=== PATIENT | female | born 1995 | race Two or more races ===

== ENCOUNTER → 2017-01-20 | Outpatient (REF) | payer OTHER ==
[2017-01-20 12:57] LABS: ALBUMIN 3.6 GM/DL (3.2-5.2); ALBUMIN/GLOBULIN RATIO 0.97 (1.00-1.93); ALKALINE PHOSPHATASE 43 U/L (45-117); ALT/SGPT 18 U/L (12-78); ANION GAP 11 MEQ/L (8-16); AST/SGOT 16 U/L (15-37); BILIRUBIN,TOTAL 0.2 MG/DL (0.2-1.0); BLOOD UREA NITROGEN 10 MG/DL (7-18); CALCIUM LEVEL 9.1 MG/DL (8.5-10.1); CARBON DIOXIDE LEVEL 26 MEQ/L (21-32); CHLORIDE LEVEL 105 MEQ/L (98-107); CHOLESTEROL LEVEL 207 MG/DL (<200); CREATININE FOR GFR 0.68 MG/DL (0.55-1.02); GLOMERULAR FILTRATION RATE > 60.0 (>60); GLUCOSE, FASTING 78 MG/DL (70-105); POTASSIUM SERUM 4.5 MEQ/L (3.5-5.1); SODIUM LEVEL 142 MEQ/L (136-145); TOTAL PROTEIN 7.3 GM/DL (6.4-8.2); TRIGLYCERIDES LEVEL 277 MG/DL (<150)
== END ==
LOC: M SFHCPLAZ 10:06
PROVIDERS: ATTEND Family Medicine
DX: E66.3 Overweight (principal)

== ENCOUNTER → 2020-03-14 | Outpatient (CLI) | payer BC ==
[2020-03-14 16:18] LABS: C REACTIVE PROTEIN QUANTITATIV 0.34 MG/DL (0.00-0.30); RHEUMATOID FACTOR QUANT < 10.0 IU/ML (<15.0)
[2020-03-17 00:06] LABS: ANTINUCLEAR ANTIBODIES DIRECT Negative (Negative); Lyme Disease IgG/IgM Antibodie <0.91 ISR (0.00-0.90); Lyme Disease IgM Ab Quantitati <0.80 index (0.00-0.79)
== END ==
LOC: M LAB 15:32
PROVIDERS: ATTEND Orthopaedic Surgery
DX: M25.561 Pain in right knee (principal)

== ENCOUNTER → 2021-01-02 | Outpatient (REF) | payer OTHER ==
[2021-01-02 13:31] LABS: HEMOGLOBIN 13.9 g/dl (12.0-15.5); MEAN CORPUSCULAR HEMOGLOBIN 28.4 pg (27.0-33.0); MEAN CORPUSCULAR HGB CONC 32.3 g/dl (32.0-36.5); MEAN CORPUSCULAR VOLUME 87.9 fl (80.0-96.0); PLATELET COUNT, AUTOMATED 314 10^3/uL (150-450); RED BLOOD COUNT 4.89 10^6/uL (4.00-5.40); WHITE BLOOD COUNT 11.2 10^3/uL (4.0-10.0)
[2021-01-02 13:58] LABS: ALT/SGPT 47 U/L (12-78); BILIRUBIN,TOTAL 0.2 MG/DL (0.2-1.0); BLOOD UREA NITROGEN 12 MG/DL (7-18); CALCIUM LEVEL 9.7 MG/DL (8.5-10.1); CARBON DIOXIDE LEVEL 28 MEQ/L (21-32); CHLORIDE LEVEL 107 MEQ/L (98-107); CREATININE FOR GFR 0.58 MG/DL (0.55-1.30); GLOMERULAR FILTRATION RATE > 60.0 (>60); GLUCOSE, FASTING 89 MG/DL (70-100); POTASSIUM SERUM 4.4 MEQ/L (3.5-5.1); SODIUM LEVEL 139 MEQ/L (136-145); TOTAL PROTEIN 7.2 GM/DL (6.4-8.2)
== END ==
LOC: M SFHCPLAZ 10:00
PROVIDERS: ATTEND Nurse Practitioner Adult Health
DX: Z00.00 Encounter for general adult medical examination without abnormal findings (principal); Z13.29 Encounter for screening for other suspected endocrine disorder

== ENCOUNTER → 2021-01-23 | Outpatient (CLI) | payer OTHER ==
--- NOTE | 2021-01-24 06:03 | REP ---
INDICATION: SWELLING OF RT ANTERIOR CERVICAL NODE COMPARISON: None. TECHNIQUE: Garber scale and color evaluation of the thyroid gland using the linear high frequency transducer. FINDINGS: The thyroid gland is normal in contour, shape, size, and echogenicity. No nodule/mass or cystic abnormalities are appreciated. Right thyroid lobe measures 3.8 x 1.5 x 1.4 cm. Isthmus measures 2.0 mm in width. Left thyroid lobe measures 3.7 x 1.5 x 1.4 cm. Palpable mass corresponds to 12 x 5 x 8 mm normal appearing lymph node. IMPRESSION: Normal thyroid ultrasound. Palpable mass corresponds to normal appearing lymph node <Electronically signed by Fredi Lynn > 01/24/21 0559
== END ==
LOC: M RAD 15:39
PROVIDERS: ATTEND Nurse Practitioner Adult Health
DX: R59.9 Enlarged lymph nodes, unspecified (principal)

== ENCOUNTER 2021-10-25 11:58 | Inpatient (IN) | payer OTHER ==
[~2021-10-25] VITALS: Ht 172.7 cm; Wt 99.5 kg
[2021-10-25] MEDS ORDERED: TRI-TAB16 PO (12:07)
[2021-10-25] MEDS ORDERED: PHEN-815 PO (12:07)
[2021-10-25] MEDS ORDERED: dexameTHASONE 4 MG/ML 1ML VIAL (J1100 PER 1MG) IV ONE (13:00)
[2021-10-25] MEDS ORDERED: ACETAMINOPHEN TAB 650MG DOSE (2X325MG) PO PRN ×2 (13:00→15:25)
[2021-10-25] MEDS: ALBUTEROL 90 MCG/ACT 8GM HFA INHALER INH SCH ×5 (13:13→20:34)
[2021-10-25 13:25] LABS: HEMATOCRIT 43.7 % (36.0-47.0); HEMOGLOBIN 14.6 g/dl (12.0-15.5); MEAN CORPUSCULAR HEMOGLOBIN 27.7 pg (27.0-33.0); MEAN CORPUSCULAR HGB CONC 33.4 g/dl (32.0-36.5); MEAN CORPUSCULAR VOLUME 82.9 fl (80.0-96.0); PLATELET COUNT, AUTOMATED 259 10^3/uL (150-450); RED BLOOD COUNT 5.27 10^6/uL (4.00-5.40); WHITE BLOOD COUNT 5.3 10^3/uL (4.0-10.0)
[2021-10-25 13:36] LABS: INR 1.03; PROTHROMBIN TIME 13.9 SECONDS (12.7-14.5)
[2021-10-25 13:37] LABS: PARTIAL THROMBOPLASTIN TIME 33.8 SECONDS (25.9-37.0)
[2021-10-25 13:39] LABS: D-DIMER QUANT 979.39 ng/ml (<500)
[2021-10-25 13:45] LABS: BLOOD UREA NITROGEN 11 MG/DL (7-18); CALCIUM LEVEL 8.3 MG/DL (8.5-10.1); CARBON DIOXIDE LEVEL 23 MEQ/L (21-32); CHLORIDE LEVEL 102 MEQ/L (98-107); CREATININE FOR GFR 0.75 MG/DL (0.55-1.30); GLOMERULAR FILTRATION RATE > 60.0 (>60); GLUCOSE, FASTING 120 MG/DL (70-100); POTASSIUM SERUM 3.7 MEQ/L (3.5-5.1); SODIUM LEVEL 137 MEQ/L (136-145)
[2021-10-25 13:51] LABS: ALBUMIN 3.1 GM/DL (3.2-5.2); BILIRUBIN,DIRECT 0.1 MG/DL (0.0-0.2); BILIRUBIN,TOTAL 0.3 MG/DL (0.2-1.0); C REACTIVE PROTEIN QUANTITATIV 9.78 MG/DL (0.00-0.30); TOTAL PROTEIN 8.3 GM/DL (6.4-8.2)
[2021-10-25 13:55] LABS: HCG, SERUM QUALITATIVE NEGATIVE (NEGATIVE)
--- NOTE | 2021-10-25 14:35 | REP ---
INDICATION: covid/SOB COMPARISON: None. TECHNIQUE: Portable AP view of the chest FINDINGS: Diffuse bilateral opacities consistent with COVID-19 pulmonary disease. No effusion. No pneumothorax. Mediastinum and cardiac silhouette are normal. Skeletal structures are intact. IMPRESSION: Significant diffuse bilateral opacities consistent with COVID-19 pulmonary disease. <Electronically signed by Fredi Lynn > 10/25/21 0214
[2021-10-25] MEDS ORDERED: HOME MED LIST COMPLETE! XX SCH (16:15)
[2021-10-25 17:20] VITALS: BP 130/78
[2021-10-25] MEDS ORDERED: BENZONATATE 100MG CAPSULE PO PRN (17:45)
[2021-10-25] MEDS ORDERED: ONDANSETRON 4MG/2ML VIAL IV PRN (17:45)
--- NOTE | 2021-10-25 17:45 | HPEPDOC ---
General Date of Admission Oct 25, 2021 at 15:12 Date of Service: Oct 25, 2021 Chief Complaint The patient is a 26-year-old female admitted with a reason for visit of Cold/Flu Symptoms +. Source: Patient History of Present Illness 26-year-old female with obesity has been unwell for the past 8 days with fever, chills, malaise, cough, muscle aches headache, sore throat loss of taste and smell and diarrhea. Her symptoms began on 10/17/2021 she was tested positive for Covid on 10/21/2021. She has been feeling short of breath since yesterday and this morning she felt extremely short of breath and could hardly make it to the bathroom so came to the emergency room to be evaluated. On presentation to the emergency room she was saturating at 90% in room air she was febrile and tachycardic and could not complete sentences without stopping. Chest x-ray showed diffuse bilateral opacities consistent with Covid nineteen pulmonary disease. She was given IV Decadron and three albuterol MDI treatments and Tylenol with improvement in her oxygen saturation to 94% in room air however on exertion she was still visibly dyspneic so it was decided to admit her to the hospital. She was admitted for COVID-19 pneumonia. 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 history of mononucleosis history of right wrist wrist fracture in March 2003 Surgical History tonsillectomy in 2015 Family History Father has hypertension brother has hypertension mother with tachycardia and arthritis paternal grandfather with diabetes and skin cancer paternal grandmother with uterine cancer and arthritis maternal grandfather with bladder cancer rheumatoid arthritis osteoarthritis diabetes Social History Alcohol: rarely Drugs: denies A-FIB/CHADSVASC A-FIB History Current/History of A-Fib/PAF?: No Review of Systems Constitutional: Reports: Chills, Fever, Malaise, Weakness, Fatigue, Other (Loss of taste and smell) Eyes: Denies: Pain, Vision change ENT: Reports: Head Aches, Sinus Congestion, Sore Throat Skin: Denies: Rash, Lesions, Breakdown Pulmonary: Reports: Dyspnea, Cough Cardiovascular: Denies: Chest Pain, Palpitations, Orthopnea, Paroxysmal Noc. Dyspnea Gastrointestinal: Reports: Nausea, Diarrhea; Denies: Vomiting, Abdominal Pain Genitourinary: Denies: Dysuria, Frequency, Incontinence Hematologic: Denies: Bruising, Bleeding Excessively Musculoskeletal: Reports: Muscle Pain; Denies: Neck Pain, Back Pain, Joint Pain, Spasms Physical Examination General Exam: Positive: Alert, Cooperative, No Acute Distress Eye Exam: Positive: PERRLA, Conjunctiva & lids normal, EOMI; Negative: Sclera icteric ENT Exam: Positive: Atraumatic, Mucous membr. moist/pink, Pharynx Normal Neck Exam: Positive: Supple; Negative: JVD, thyromegaly Chest Exam: Positive: Wheezing, Diminished, Other (Bilateral crackles) Heart Exam: Positive: Rate Normal, Regular Rhythm, Normal S1, Normal S2; Negative: Murmurs, Rubs Abdomen Exam: Positive: Normal bowel sounds, Soft; Negative: Tenderness Extremity Exam: Negative: Clubbing, Cyanosis, Edema Skin Exam: Positive: Nl turgor and temperature; Negative: Breakdown Psych Exam: Positive: Memory Intact, Oriented x 3 Vital Signs Vital Signs Date Time Temp Pulse Resp B/P (MAP) Pulse Ox O2 Delivery O2 Flow Rate FiO2 10/25/21 16:36 99.5 91 20 134/78 (96) 92 Room Air Laboratory Data Labs 24H Laboratory Tests 2 10/25/21 12:37: Nucleated Red Blood Cells % (auto) 0.0, Prothrombin Time 13.9, Prothromb Time International Ratio 1.03, Activated Partial Thromboplast Time 33.8, Fibrinogen 696H, D-Dimer, Quantitative 979.39H, Anion Gap 12, Glomerular Filtration Rate > 60.0, Calcium Level 8.3L, Ferritin 853H, Total Bilirubin 0.3, Direct Bilirubin 0.1, Aspartate Amino Transf (AST/SGOT) 64H, Alanine Aminotransferase (ALT/SGPT) 50, Alkaline Phosphatase 43L, Lactate Dehydrogenase 357H, Total Creatine Kinase 262H, C-Reactive Protein, Quantitative 9.78H, Total Protein 8.3H, Albumin 3.1L, Albumin/Globulin Ratio 0.6L, Human Chorionic Gonadotropin, Qual NEGATIVE CBC/BMP Laboratory Tests 10/25/21 12:37 Assessment/Plan 26-year-old female with obesity has been unwell for the past 8 days with fever, chills, malaise, cough, muscle aches headache sore throat loss of taste and smell. Her symptoms began on 10/17/2021 she was tested positive for Covid on 10/21/2021. She has been feeling short of breath since yesterday and this morning she felt extremely short of breath and could hardly make it to the bathroom so came to the emergency room to be evaluated. On presentation to the emergency room she was saturating at 90% in room air she was febrile and tachycardic and could not complete sentences without stopping. Chest x-ray showed diffuse bilateral opacities consistent with Covid- 19 pulmonary disease. She was given IV Decadron and three albuterol MDI treatments and Tylenol with improvement in her oxygen saturation to 94% in room air however on exertion she was still visibly dyspneic so it was decided to admit her to the hospital. She was admitted for COVID-19 pneumonia. COVID-19 pneumonia Will get Covid labs We will give dexamethasone, albuterol, aspirin If patient desaturates will start on remdesivir Symptom control with the Tylenol, Zofran as needed We will consent for monoclonal antibody to administer deep oxygen saturation does not worsen. Plan / VTE VTE Prophylaxis Ordered?: Yes Mirna Guaman MD Oct 25, 2021 16:57
[2021-10-25 20:00] VITALS: BP 126/78
[2021-10-25] MEDS: ENOXAPARIN 40MG/0.4ML SYRINGE (J1650 PER 10MG) SC SCH (20:53)
[2021-10-25 21:00] VITALS: O2SAT 88
[2021-10-25 21:30] VITALS: O2SAT 91
[2021-10-26] VITALS (10 sets, daily range): BP systolic 119–140; BP diastolic 78–91; O2SAT 87–95
[2021-10-26 03:02] LABS: APPEARANCE, URINE CLOUDY (CLEAR); BACTERIA, URINE AUTO 1+ (NEGATIVE); BILIRUBIN, URINE AUTO NEGATIVE (NEGATIVE); BLOOD, URINE BLOOD 3+ (NEGATIVE); COLOR, URINE YELLOW (YELLOW); GLUCOSE, URINE (UA) AUTO NEGATIVE (NEGATIVE); KETONE, URINE AUTO 1+ mg/dL (NEGATIVE); LEUKOCYTE ESTERASE, URINE AUTO NEGATIVE (NEGATIVE); MUCUS, URINE SMALL (NEGATIVE); NITRITE, URINE AUTO NEGATIVE (NEGATIVE); PROTEIN, URINE AUTO 3+ mg/dL (NEGATIVE); RBC, URINE AUTO 2 /HPF (0-3); SPECIFIC GRAVITY URINE AUTO 1.026 (1.002-1.035); SQUAMOUS EPITHELIAL CELL UR AU 2 /HPF (0-6); UROBILINOGEN, URINE AUTO 0.2 mg/dL (0.0-2.0); WBC, URINE AUTO 4 /HPF (0-3)
[2021-10-26] MEDS: ALBUTEROL 90 MCG/ACT 8GM HFA INHALER INH SCH ×4 (07:41→19:59)
[2021-10-26 08:38] LABS: BASO % 0.1 % (0.0-1.0); HEMATOCRIT 42.5 % (36.0-47.0); HEMOGLOBIN 14.4 g/dl (12.0-15.5); LYMPH # 1.5 10^3/uL (1.5-5.0); LYMPH % 21.1 % (24.0-44.0); MEAN CORPUSCULAR HEMOGLOBIN 28.2 pg (27.0-33.0); MEAN CORPUSCULAR HGB CONC 33.9 g/dl (32.0-36.5); MEAN CORPUSCULAR VOLUME 83.2 fl (80.0-96.0); MONO # 0.4 10^3/uL (0.0-0.8); NEUTROPHILS # 5.2 10^3/uL (1.5-8.5); PLATELET COUNT, AUTOMATED 324 10^3/uL (150-450); RED BLOOD COUNT 5.11 10^6/uL (4.00-5.40); WHITE BLOOD COUNT 7.3 10^3/uL (4.0-10.0)
[2021-10-26] MEDS: dexameTHASONE 4 MG/ML 1ML VIAL (J1100 PER 1MG) IV SCH (08:40)
[2021-10-26] MEDS: ASPIRIN 81MG ENTERIC TABLET PO SCH (08:42)
[2021-10-26 09:43] LABS: BLOOD UREA NITROGEN 14 MG/DL (7-18); CARBON DIOXIDE LEVEL 25 MEQ/L (21-32); CHLORIDE LEVEL 103 MEQ/L (98-107); CREATININE FOR GFR 0.71 MG/DL (0.55-1.30); GLOMERULAR FILTRATION RATE > 60.0 (>60); GLUCOSE, FASTING 125 MG/DL (70-100); MAGNESIUM LEVEL 2.5 MG/DL (1.8-2.4); POTASSIUM SERUM 3.6 MEQ/L (3.5-5.1); SODIUM LEVEL 136 MEQ/L (136-145)
[2021-10-26] MEDS ORDERED: REMDESIVIR 200 MG in NS 250 ML IV ONE ×2 (10:00→22:00)
[2021-10-26] MEDS ORDERED: SODIUM CHLORIDE 0.9% INJ 10 ML SYR IV ONE (12:00)
--- NOTE | 2021-10-26 12:55 | IPNPDOC ---
Subjective Date Seen The patient was seen on 10/26/21. Subjective Chief Complaint/HPI Patient has been having fits of coughing throughout the night and has been requiring oxygen. At night she was needing 5 L of oxygen. This morning she is down to 2 L of oxygen. No fever this morning last fever was at 2 PM yesterday which was 101.5. She feels a little better however the cough is still bothering her Objective Physical Examination General Exam: Positive: Alert, Cooperative, No Acute Distress Eye Exam: Positive: PERRLA, Conjunctiva & lids normal, EOMI; Negative: Sclera icteric ENT Exam: Positive: Atraumatic, Mucous membr. moist/pink, Pharynx Normal Neck Exam: Positive: Supple; Negative: JVD, thyromegaly Chest Exam: Positive: Wheezing, Diminished, Other (Bilateral crackles) Heart Exam: Positive: Rate Normal, Regular Rhythm, Normal S1, Normal S2; Negative: Murmurs, Rubs Abdomen Exam: Positive: Normal bowel sounds, Soft; Negative: Tenderness Extremity Exam: Negative: Clubbing, Cyanosis, Edema Skin Exam: Positive: Nl turgor and temperature; Negative: Breakdown Psych Exam: Positive: Memory Intact, Oriented x 3 Assessment /Plan Assessment 26-year-old female with obesity has been unwell for the past 8 days with fever, chills, malaise, cough, muscle aches headache sore throat loss of taste and smell. Her symptoms began on 10/17/2021 she was tested positive for Covid on 10/21/2021. She has been feeling short of breath since yesterday and this morning she felt extremely short of breath and could hardly make it to the bathr oom so came to the emergency room to be evaluated. On presentation to the emergency room she was saturating at 90% in room air she was febrile and tachycardic and could not complete sentences without stopping. Chest x-ray showed diffuse bilateral opacities consistent with Covid- 19 pulmonary disease. She was given IV Decadron and three albuterol MDI treatments and Tylenol with improvement in her oxygen saturation to 94% in room air however on exertion she was still visibly dyspneic so it was decided to admit her to the hospital. She was admitted for COVID-19 pneumonia. COVID-19 pneumonia with hypoxia Continue dexamethasone, albuterol, aspirin Patient refused remdesivir Symptom control with the Tylenol, Zofran as needed Encourage awake pronation and incentive spirometry. We will try to wean off oxygen Plan/VTE VTE Prophylaxis Ordered?: Yes VS, I&O, 24H, Fishbone Vital Signs/I&O Vital Signs Date Time Temp Pulse Resp B/P (MAP) Pulse Ox O2 Delivery O2 Flow Rate FiO2 10/26/21 12:00 95 Nasal Cannula 2.0 10/26/21 04:00 97.9 102 18 126/78 (94) I&O- Last 24 Hours up to 6 AM 10/26/21 06:00 Intake Total 480 ml Output Total 200 ml Balance 280 ml Laboratory Data 24H LABS Laboratory Tests 2 10/26/21 02:41: Urine Color YELLOW, Urine Appearance CLOUDYH, Urine pH 6.0, Urine Specific Gra vity 1.026, Urine Protein 3+H, Urine Glucose (Auto)(UA) NEGATIVE, Urine Ketones (Auto) 1+H, Urine Blood 3+H, Urine Nitrite NEGATIVE, Urine Bilirubin NEGATIVE, Urine Urobilinogen 0.2, Urine Leukocyte Esterase (Auto) NEGATIVE, Urine WBC (Auto) 4H, Urine RBC (Auto) 2, Urine Hyaline Casts (Auto) 0, Urine Bacteria (Auto) 1+H, Urine Squamous Epithelial Cells 2, Urine Mucus (Auto) SMALL, Urine Sperm (Auto) 10/26/21 08:12: Immature Granulocyte % (Auto) 0.8, Neutrophils (%) (Auto) 72.0H, Lymphocytes (%) (Auto) 21.1L, Monocytes (%) (Auto) 6.0, Eosinophils (%) (Auto) 0.0, Basophils (%) (Auto) 0.1, Neutrophils # (Auto) 5.2, Lymphocytes # (Auto) 1.5, Monocytes # (Auto) 0.4, Eosinophils # (Auto) 0.0, Basophils # (Auto) 0.0, Nucleated Red Blood Cells % (auto) 0.0, Anion Gap 8, Glomerular Filtration Rate > 60.0, Calcium Level 9.0, Magnesium Level 2.5H CBC/BMP Laboratory Tests 10/26/21 08:12 Mirna Guaman MD Oct 26, 2021 12:55
[2021-10-26] MEDS: ENOXAPARIN 40MG/0.4ML SYRINGE (J1650 PER 10MG) SC SCH (20:30)
[2021-10-27] MEDS ORDERED: SODIUM CHLORIDE 0.9% INJ 10 ML SYR IV ONE
[2021-10-27 04:00] VITALS: BP 114/74
[2021-10-27 04:22] VITALS: O2SAT 95
[2021-10-27 06:38] LABS: HEMATOCRIT 41.3 % (36.0-47.0); HEMOGLOBIN 13.6 g/dl (12.0-15.5); MEAN CORPUSCULAR HEMOGLOBIN 27.8 pg (27.0-33.0); MEAN CORPUSCULAR HGB CONC 32.9 g/dl (32.0-36.5); MEAN CORPUSCULAR VOLUME 84.5 fl (80.0-96.0); PLATELET COUNT, AUTOMATED 404 10^3/uL (150-450); RED BLOOD COUNT 4.89 10^6/uL (4.00-5.40); WHITE BLOOD COUNT 7.9 10^3/uL (4.0-10.0)
[2021-10-27 06:49] LABS: INR 1.01; PROTHROMBIN TIME 13.7 SECONDS (12.7-14.5)
[2021-10-27 06:50] LABS: PARTIAL THROMBOPLASTIN TIME 34.5 SECONDS (25.9-37.0)
[2021-10-27 07:01] LABS: ALBUMIN 2.7 GM/DL (3.2-5.2); ALT/SGPT 40 U/L (12-78); BILIRUBIN,DIRECT < 0.1 MG/DL (0.0-0.2); BILIRUBIN,TOTAL 0.3 MG/DL (0.2-1.0); BLOOD UREA NITROGEN 15 MG/DL (7-18); CALCIUM LEVEL 8.8 MG/DL (8.5-10.1); CARBON DIOXIDE LEVEL 24 MEQ/L (21-32); CHLORIDE LEVEL 103 MEQ/L (98-107); CREATININE FOR GFR 0.59 MG/DL (0.55-1.30); FERRITIN 1028 NG/ML (8-252); GLOMERULAR FILTRATION RATE > 60.0 (>60); GLUCOSE, FASTING 119 MG/DL (70-100); LDH LACTATE DEHYDROGENASE 299 U/L (84-246); MAGNESIUM LEVEL 2.6 MG/DL (1.8-2.4); NT-PRO BNP 5 PG/ML (<125); POTASSIUM SERUM 3.2 MEQ/L (3.5-5.1); SODIUM LEVEL 138 MEQ/L (136-145); TOTAL PROTEIN 7.7 GM/DL (6.4-8.2)
[2021-10-27 07:12] LABS: LYMPHOCYTES 18 % (16-44); METAMYELOCYTES 4 % (0-0); MONOCYTES 5 % (0-5); NEUTROPHILS 71 % (28-66); PLATELET ESTIMATE INCREASED (NORMAL)
[2021-10-27] MEDS ORDERED: POTASSIUM CHLORIDE 10MEQ SR TABLET PO ONE (07:15)
[2021-10-27] MEDS: ALBUTEROL 90 MCG/ACT 8GM HFA INHALER INH SCH ×2 (07:54→12:28)
[2021-10-27 08:00] VITALS: O2SAT 92
[2021-10-27] MEDS: dexameTHASONE 4 MG/ML 1ML VIAL (J1100 PER 1MG) IV SCH (08:40)
[2021-10-27] MEDS: ASPIRIN 81MG ENTERIC TABLET PO SCH (08:40)
[2021-10-27] MEDS ORDERED: BENZ-18 PO (09:25)
[2021-10-27] MEDS ORDERED: VENTAER INH (09:25)
[2021-10-27] MEDS ORDERED: ASPI-551 PO (09:25)
[2021-10-27] MEDS ORDERED: PRED10TA2 PO (09:25)
--- NOTE | 2021-10-27 09:30 | DS.PDOC ---
Discharge Summary General Date of Admission Oct 25, 2021 at 15:12 Date of Discharge 10/27/21 Discharge Summary PROCEDURES PERFORMED DURING STAY: [None]. DISCHARGE DIAGNOSES: COVID- 19 pneumonia with hypoxia. COMPLICATIONS/CHIEF COMPLAINT: Cold/Flu Symptoms +. HOSPITAL COURSE: 26-year-old female with obesity has been unwell for the past 8 days with fever, chills, malaise, cough, muscle aches headache sore throat loss of taste and smell. Her symptoms began on 10/17/2021 she was tested positive for Covid on 10/21/2021. She has been feeling short of breath since yesterday and this morning she felt extremely short of breath and could hardly make it to the bathroom so came to the emergency room to be evaluated. On presentation to the emergency room she was saturating at 90% in room air she was febrile and tachycardic and could not complete sentences without stopping. Chest x-ray showed diffuse bilateral opacities consistent with Covid- 19 pulmonary disease. She was given IV Decadron and three albuterol MDI treatments and Tylenol with improvement in her oxygen saturation to 94% in room air however on exertion she was still visibly dyspneic so it was decided to admit her to the hospital. She was admitted for COVID-19 pneumonia. COVID-19 pneumonia with hypoxia Continue prednisone, albuterol, aspirin Patient refused remdesivir Symptom control with the Tylenol Continue to Prone as tolerated, incentive spirometry Will be discharged home with Home oxygen as continues to need desaturate to 88% in room air at rest. DISCHARGE MEDICATIONS: Please see below. ALLERGIES: Please see below. PHYSICAL EXAMINATION ON DISCHARGE: VITAL SIGNS: Please see below. General Exam: Positive: Alert, Cooperative, No Acute Distress Eye Exam: Positive: PERRLA, Conjunctiva & lids normal, EOMI; Negative: Sclera icteric ENT Exam: Positive: Atraumatic, Mucous membr. moist/pink, Pharynx Normal Neck Exam: Positive: Supple; Negative: JVD, thyromegaly Chest Exam: Positive: Wheezing, Diminished, Other (Bilateral crackles) Heart Exam: Positive: Rate Normal, Regular Rhythm, Normal S1, Normal S2; Negative: Murmurs, Rubs Abdomen Exam: Positive: Normal bowel sounds, Soft; Negative: Tenderness Extremity Exam: Negative: Clubbing, Cyanosis, Edema Skin Exam: Positive: Nl turgor and temperature; Negative: Breakdown Psych Exam: Positive: Memory Intact, Oriented x 3 LABORATORY DATA: Please see below. IMAGING: CXR: Diffuse bilateral opacities consistent with COVID-19 pulmonary disease. No effusion. No pneumothorax. Mediastinum and cardiac silhouette are normal. Skeletal structures are intact. IMPRESSION: Significant diffuse bilateral opacities consistent with COVID-19 pulmonary disease. ACTIVITY: [As tolerated]. DIET: As tolerated DISCHARGE PLAN: Home DISCHARGE INSTRUCTIONS: Follow up with PMD in 1 to 2 weeks DISCHARGE CONDITION: [Stable]. TIME SPENT ON DISCHARGE: 35 minutes. Vital Signs/I&Os Vital Signs Date Time Temp Pulse Resp B/P (MAP) Pulse Ox O2 Delivery O2 Flow Rate FiO2 10/27/21 09:11 2.0 10/27/21 08:00 92 Nasal Cannula 10/27/21 04:00 98.4 88 18 114/74 (87) I&O- Last 24 Hours up to 6 AM 10/27/21 06:00 Intake Total 1090 ml Output Total 275 ml Balance 815 ml Laboratory Data Labs 24H Laboratory Tests 2 10/27/21 05:37: Neutrophils (%) (Auto) , Nucleated Red Blood Cells % (auto) 0.0, Neutrophils 71H, Band Neutrophils 2, Lymphocytes (Manual) 18, Monocytes (Manual) 5, Metamyelocytes 4H, Red Blood Cell Morphology NORMAL, Platelet Estimate INCREASED, Prothrombin Time 13.7, Prothromb Time International Ratio 1.01, Activated Partial Thromboplast Time 34.5, Fibrinogen 684H, Anion Gap 11, Glomerular Filtration Rate > 60.0, Calcium Level 8.8, Magnesium Level 2.6H, Ferritin 1028H, Total Bilirubin 0.3, Direct Bilirubin < 0.1, Aspartate Amino Transf (AST/SGOT) 37, Alanine Aminotransferase (ALT/SGPT) 40, Alkaline Phosphatase 40L, Lactate Dehydrogenase 299H, Total Creatine Kinase 125, NT-P ro-B-Type Natriuretic Peptide 5, Total Protein 7.7, Albumin 2.7L, Albumin/Globulin Ratio 0.5L CBC/BMP Laboratory Tests 10/27/21 05:37 Discharge Medications Scheduled Albuterol Sulfate (Ventolin Hfa) 18 Gm Hfa.aer.ad, 2 PUFF INH RQID Aspirin (Aspirin EC) 81 Mg Tablet.dr, 81 MG PO DAILY Norgestimate-Ethinyl Estradiol (Tri-Linyah Tablet) 1 Each Tablet, 1 TAB PO QHS, (Reported) Prednisone (Prednisone) 10 Mg Tablet, 10 MG PO TAPER Take 4 tabs daily x 3 days, then 3 tabs daily x 3 days, then 2 tabs daily x 3 days, then 1 tab daily x 3 days and stop Scheduled PRN Benzonatate (Benzonatate) 100 Mg Capsule, 100 MG PO TIDP PRN for COUGH Phenylephrine/Dm/Acetaminop/GG (Tylenol Cold-Flu Severe Caplet) 1 Each Tablet, 1 TAB PO BID PRN for CONGESTION, (Reported) Allergies Coded Allergies: No Known Allergies (Unverified , 06/29/03) Mirna Guaman MD Oct 27, 2021 09:30
[2021-10-27] MEDS ORDERED: guaiFENesin DM LIQ 10ML UD PO PRN (10:00)
[2021-10-27] MEDS ORDERED: FUROSEMIDE 40MG/4ML VIAL (J1940) IV ONE (10:00)
[2021-10-27] MEDS ORDERED: REMDESIVIR 100 MG in NS 250 ML IV SCH (21:00)
[2021-10-27] MEDS ORDERED: SODIUM CHLORIDE 0.9% INJ 10 ML SYR IV SCH (22:00)
[2021-10-29 15:08] LABS: BODY FLUID CULTURE Not indicated. (.); ORGANISM ID Not indicated. (.); SPECIMEN SOURCE Urine (.); URINE STREP PNEUMONIAE ANTIGEN Negative (Negative)
== END 2021-10-27 15:15 | disposition home health service (06) | DRG 177 ==
LOC: M ED 11:58 → M ED INP 15:12 → M 4MAIN 17:30
PROVIDERS: ADMIT Internal Medicine Nephrology; ATTEND Internal Medicine Nephrology
DX: U07.1 COVID-19 (principal); J12.82 Pneumonia due to coronavirus disease 2019; E66.9 Obesity, unspecified; Z79.82 Long term (current) use of aspirin; Z79.899 Other long term (current) drug therapy

== ENCOUNTER → 2021-11-12 | Outpatient (CLI) | payer OTHER ==
[~2021-11-12] MED LIST: ASPI-551 PO; BENZ-18 PO; PHEN-815 PO; PRED10TA2 PO; TRI-TAB16 PO; VENTAER INH
--- NOTE | 2021-11-12 10:12 | REP ---
INDICATION: PNEUMONIA DUE TO CORONAVIRUS DISEASE 2019 COMPARISON: None. TECHNIQUE: PA and lateral. FINDINGS: The mediastinum and cardiac silhouette are normal. The lung hendrix are clear and without acute consolidation, effusion, or pneumothorax. Previous opacities have resolved. The skeletal structures are intact and normal. IMPRESSION: No acute cardiopulmonary process. <Electronically signed by Fredi Lynn > 11/12/21 1007
[2021-11-12 14:31] LABS: BLOOD UREA NITROGEN 9 MG/DL (7-18); CALCIUM LEVEL 9.3 MG/DL (8.5-10.1); CARBON DIOXIDE LEVEL 27 MEQ/L (21-32); CHLORIDE LEVEL 104 MEQ/L (98-107); GLOMERULAR FILTRATION RATE > 60.0 (>60); GLUCOSE, FASTING 100 MG/DL (70-100); POTASSIUM SERUM 4.4 MEQ/L (3.5-5.1); SODIUM LEVEL 138 MEQ/L (136-145)
== END ==
LOC: M PLAIMG 09:17
PROVIDERS: ATTEND Nurse Practitioner Adult Health
DX: U07.1 COVID-19 (principal); J12.82 Pneumonia due to coronavirus disease 2019

== ENCOUNTER → 2022-11-13 | Outpatient (REF) | payer BC | LOC: M PLALAB 10:53 | PROVIDERS: ATTEND Nurse Practitioner Family | DX: Z12.4 Encounter for screening for malignant neoplasm of cervix (principal) | CPT/HCPCS: 87624; G0123 ==

== ENCOUNTER 2024-06-05 15:31 | Emergency (ER) | payer BC ==
[~2024-06-05] VITALS: Ht 172.7 cm; Wt 110.7 kg
[2024-06-05 15:31] VITALS: TEMP 98.1
[2024-06-05] MEDS: hydrOXYzine 50 MG TAB PO STA (19:46)
[2024-06-05 19:50] VITALS: BP 145/89; O2SAT 97
[2024-06-05 20:10] LABS: BASO # 0.1 10^3/uL (0.0-0.2); BASO % 0.5 % (0.0-1.0); EOS # 0.1 10^3/uL (0.0-0.5); EOS % 0.9 % (0.0-3.0); HEMATOCRIT 44.7 % (36.0-47.0); HEMOGLOBIN 15.1 g/dl (12.0-15.5); LYMPH # 4.3 10^3/uL (1.5-5.0); LYMPH % 35.3 % (24.0-44.0); MEAN CORPUSCULAR HEMOGLOBIN 29.2 pg (27.0-33.0); MEAN CORPUSCULAR HGB CONC 33.8 g/dl (32.0-36.5); MEAN CORPUSCULAR VOLUME 86.5 fl (80.0-96.0); MONO # 0.6 10^3/uL (0.0-0.8); NEUTROPHILS # 7.1 10^3/uL (1.5-8.5); NEUTROPHILS % 57.8 % (36.0-66.0); PLATELET COUNT, AUTOMATED 329 10^3/uL (150-450); RED BLOOD COUNT 5.17 10^6/uL (4.00-5.40); WHITE BLOOD COUNT 12.3 10^3/uL (4.0-10.0)
[2024-06-05 20:35] LABS: CK-MB VALUE MASS < 1.0 NG/ML (<3.6)
[2024-06-05 20:36] LABS: BLOOD UREA NITROGEN 9 MG/DL (9-23); CALCIUM LEVEL 9.8 MG/DL (8.5-10.1); CARBON DIOXIDE LEVEL 22 MMOL/L (20-31); CHLORIDE LEVEL 107 MMOL/L (98-107); CREATININE FOR GFR 0.53 MG/DL (0.55-1.30); GLOMERULAR FILTRATION RATE > 60.0 (>60); GLUCOSE, FASTING 98 MG/DL (60-100); POTASSIUM SERUM 4.2 MMOL/L (3.5-5.1); SODIUM LEVEL 135 MMOL/L (136-145)
[2024-06-05 20:38] LABS: THYROID STIMULATING HORMONE 3.817 uIU/ML (0.55-4.78)
[2024-06-05 20:39] LABS: FREE T4 0.99 NG/DL (0.89-1.76)
[2024-06-05 20:41] LABS: CPK CREATINE PHOSPHOKINASE 117 U/L (34-145); MB/CK RELATIVE INDEX 0.85 (< OR =4)
[2024-06-05 20:45] LABS: HCG, SERUM QUALITATIVE NEGATIVE (NEGATIVE)
[2024-06-05 22:06] LABS: CK-MB VALUE MASS < 1.0 NG/ML (<3.6)
[2024-06-05 22:07] LABS: CPK CREATINE PHOSPHOKINASE 98 U/L (34-145); MB/CK RELATIVE INDEX 1.02 (< OR =4)
[2024-06-05] MEDS ORDERED: HYDR-3363 PO (22:44)
== END 2024-06-05 23:10 | disposition home or self-care (01) ==
LOC: M ED 15:31
DX: R07.89 Other chest pain (principal); F41.9 Anxiety disorder, unspecified; Z79.899 Other long term (current) drug therapy

== ENCOUNTER → 2025-08-23 | Outpatient (CLI) | payer BC ==
[~2025-08-23] MED LIST changes: +HYDR-3363 PO
[2025-08-23 18:31] LABS: LUTEINIZING HORMONE 3.4 mIU/ML; PROLACTIN 11.52 NG/ML
[2025-08-23 18:32] LABS: FREE T4 1.02 NG/DL (0.89-1.76)
[2025-08-23 18:33] LABS: ESTRADIOL 114.8 PG/ML
[2025-08-25 11:38] LABS: DEHYDROEPIANDROSTERONE SULFATE 244.0 mcg/dL (19-237)
[2025-08-31 15:03] LABS: TESTOSTERONE FREE (DIRECT) 6.3 pg/mL (0.1-6.4); TESTOSTERONE TOTAL FOR T&D 41.0 ng/dL (2-45)
== END ==
LOC: M PLALAB 16:28
PROVIDERS: ATTEND Student in an Organized Health Care Education/Training Program
DX: N97.9 Female infertility, unspecified (principal)

== ENCOUNTER → 2025-08-29 | Outpatient (CLI) | payer BC | LOC: M WHC 15:42 | PROVIDERS: ATTEND Student in an Organized Health Care Education/Training Program | DX: N97.9 Female infertility, unspecified (principal) ==

== ENCOUNTER → 2025-09-13 | Outpatient (CLI) | payer BC | LOC: M PLALAB 09:46 | PROVIDERS: ATTEND Student in an Organized Health Care Education/Training Program | DX: N97.9 Female infertility, unspecified (principal) ==